=== PATIENT | male | born 1950 | race Caucasian/White ===

== ENCOUNTER 2022-01-15 12:48 | Emergency (ER) | payer OTHER ==
[~2022-01-15 12:48] MED LIST: AUGMENTIN 875-1 EACH PO
[2022-01-15 15:13] LABS: BASOPHIL 0.6 % (0-2); EOSINOPHIL 2.3 % (0-7); HCT 39.5 % (42.0-52.0); HGB 13.2 g/dl (13.2-18.0); LYMPHOCYTE 11.2 % (15-48); MCH 30.3 pg (25.0-31.0); MCHC 33.4 g/dL (32.0-36.0); MCV 90.8 fL (78.0-100.0); MONOCYTE 4.2 % (0-12); MPV 10.2 fL (6.0-9.5); NEUTROPHIL 81.1 % (41-80); NRBC 0; PLT 274 K/uL (150-400); RBC 4.35 M/uL (4.70-6.00); RDW 13.5 % (11.5-14.0); WBC 14.9 K/uL (4.0-10.5)
[2022-01-15 15:23] LABS: INR 1.07 (0.9-1.2); PROTHROMBIN TIME 13.3 SECONDS (11.8-13.4); PTT 27.6 SECONDS (24.4-34.7)
[2022-01-15 15:41] LABS: ALBUMIN 3.8 g/dL (3.4-5.0); BILIRUBIN - TOTAL 0.5 mg/dL (0.2-1.0); BUN/CREAT RATIO (CALC) 19.4 RATIO; CREATININE 1.08 mg/dL (0.67-1.17); GLOBULIN (CALCULATION) 3.6 g/dL; POTASSIUM 4.6 mmol/L (3.5-5.1); TOTAL PROTEIN 7.4 g/dL (6.4-8.2)
== END 2022-01-15 18:04 | disposition home or self-care (01) ==
LOC: FER 12:48
PROVIDERS: Emergency Medicine
DX: R41.82 Altered mental status, unspecified (principal); G91.9 Hydrocephalus, unspecified; I10 Essential (primary) hypertension; E11.9 Type 2 diabetes mellitus without complications; Z79.82 Long term (current) use of aspirin; Z79.84 Long term (current) use of oral hypoglycemic drugs; Z79.899 Other long term (current) drug therapy
CPT/HCPCS: 36415; 70450; 71045; 80053; 82553; 84443; 84484; 85025; 85610; 85730; 93005

== ENCOUNTER 2022-04-03 12:07 | Emergency (ER) | payer OTHER ==
[2022-04-03 12:53] LABS: BASOPHIL 0.9 % (0-2); HGB 12.1 g/dl (13.2-18.0); LYMPHOCYTE 22.5 % (15-48); MCHC 32.7 g/dL (32.0-36.0); MCV 91.6 fL (78.0-100.0); MONOCYTE 7.6 % (0-12); MPV 9.9 fL (6.0-9.5); NEUTROPHIL 66.6 % (41-80); NRBC 0; PLT 307 K/uL (150-400); RBC 4.04 M/uL (4.70-6.00); RDW 12.5 % (11.5-14.0); WBC 10.3 K/uL (4.0-10.5)
[2022-04-03 13:10] LABS: INR 1.02 (0.9-1.2); PROTHROMBIN TIME 13.1 SECONDS (11.9-13.9); PTT 27.1 SECONDS (24.9-34.6)
[2022-04-03 13:11] LABS: D-DIMER 0.36 ug/mLFEU (0.00-0.41)
[2022-04-03 13:15] LABS: BUN/CREAT RATIO (CALC) 19.5 RATIO; CREATININE 0.87 mg/dL (0.67-1.17); POTASSIUM 3.9 mmol/L (3.5-5.1)
== END 2022-04-03 14:53 | disposition home or self-care (01) ==
LOC: FER 12:07
PROVIDERS: Nurse Practitioner Family
DX: R78.89 Finding of other specified substances, not normally found in blood (principal); I10 Essential (primary) hypertension; J44.9 Chronic obstructive pulmonary disease, unspecified; E11.9 Type 2 diabetes mellitus without complications; Z28.310 Unvaccinated for COVID-19; Z79.82 Long term (current) use of aspirin; Z79.84 Long term (current) use of oral hypoglycemic drugs; Z79.899 Other long term (current) drug therapy
CPT/HCPCS: 36415; 80048; 85025; 85379; 85610; 85730; 99283